=== PATIENT | female | born 1960 | race African-American/Black ===

== ENCOUNTER 2019-03-01 11:12 | Emergency (ER) | payer MEDICARE, MEDICAID ==
[~2019-03-01] VITALS: Ht 162.6 cm; Wt 64.0 kg
[2019-03-01] MEDS ORDERED: PREDNISONE 20MG TABLET PO STA (11:30)
[2019-03-01] MEDS ORDERED: IPRATROPIUM BROMIDE (0.02%) 0.5MG/2.5ML NEB HHN STA (11:30)
[2019-03-01] MEDS ORDERED: ALBUTEROL (0.083%) 2.5MG/3ML NEB HHN STA (11:30)
[2019-03-01 13:00] VITALS: BP 141/94
== END 2019-03-01 13:18 | disposition home or self-care (01) ==
LOC: ER 11:12
DX: J40 Bronchitis, not specified as acute or chronic (principal); J06.9 Acute upper respiratory infection, unspecified; R09.89 Other specified symptoms and signs involving the circulatory and respiratory systems; F17.210 Nicotine dependence, cigarettes, uncomplicated
CPT/HCPCS: 71045; 93005; 94640; 99283; J7512; J7611